=== PATIENT | female | born 1985 | race Two or more races ===

== ENCOUNTER → 2016-05-01 | Emergency (ER) | payer OTHER ==
[~2016-05-01] MED LIST: ONDANSETRON 4 MG/2 ML VIAL IVPUSH ONE; ONDANSETRON 4 MG/2 ML VIAL ONE; SODIUM CHLORIDE 1,000 ML IV STA; morphine CARPU-JECT 2 MG/1 ML DISP.SYRIN IVPUSH ONE; morphine CARPU-JECT 2 MG/1 ML DISP.SYRIN ONE
[2016-05-01 11:08] VITALS: PULSE 68; TEMP 97.3; BMI 21.4
[2016-05-01 12:12] LABS: BASOPHIL 0.3 % (0-2.0); MCHC 33.4 g/dl (32.0-36.0); MEAN CELL VOLUME 95.8 fl (80-96); MEAN PLT VOLUME 7.5 fl (7.5-11.1); NEUTROPHILS 92.1 % (42.8-82.8); PLATELET COUNT 329 K/MM3 (134-434); RDW 13.5 % (11.6-15.6); WHITE BLOOD COUNT 11.2 K/mm3 (4.0-10.0)
--- NOTE | 2016-05-01 12:22 | PDOC ---
History of Present Illness - General Chief Complaint: Pain, Acute Stated Complaint: ABD PAIN Time Seen by Provider: 05/01/16 11:21 History Source: Patient Exam Limitations: No Limitations - History of Present Illness Travel History: No Initial Comments: 05/01/16 11:27 31-year-old female presents the ED with worsening left suprapubic cramping which she states started yesterday evening thinking it was her menses since she is currently 3 weeks late but states the pain worsened through the night and this morning became to the point that she started to vomit and felt nauseous. Patient denies history of ectopic, irregular menses, or uterine fibroids. Patient does state history of ovarian cysts without surgical or medical intervention. Patient states vaginal bleeding started this morning which is a dark red and consistent with the beginning of her menstrual flow. Timing/Duration: reports: constant, getting worse Quality: reports: moderate, cramping Abdominal Pain Onset Location: reports: suprapubic (left) Pain Radiation: reports: no radiation Activities at Onset: reports: none Aggravating Factors: improves with: None Alleviating Factors: improves with: None Past History - Past Medical History Allergies/Adverse Reactions: Allergies Allergy/AdvReac Type Severity Reaction Status Date / Time No Known Allergies Allergy Verified 05/01/16 11:04 Home Medications: Ambulatory Orders NK [No Known Home Medication] 11/27/14 Other medical history: denies. - Reproductive History LMP Normal: No Is Patient Now?: No (#): 2 Para: 0 Therapeutic (s) & number: Yes Spontaneous : 1 - Psycho/Social/Smoking Cessation Hx Anxiety: No Suicidal Ideation: No Smoking History: Never smoked Hx Alcohol Use: Yes (OCCASIONALLY) Drug/Substance Use Hx: No Substance Use Type: Alcohol Patient Lives Alone: No Lives with/in: spouse/SO Review of Systems - Review of Systems Able to Perform ROS?: Yes Constitutional: No: Symptoms Reported HEENTM: No: Symptoms Reported Respiratory: No: Symptoms reported Cardiac (ROS): No: Symptoms Reported ABD/GI: Yes: Nausea, Vomiting, Abdominal cramping : Yes: Dysuria (vaginal bleeding since this am) Musculoskeletal: No: Symptoms Reported Integumentary: No: Symptoms Reported Neurological: No: Symptoms reported Endocrine: No: Symptoms Reported Hematologic/Lymphatic: No: Symptoms Reported *Physical Exam - Vital Signs Last Vital Signs Temp Pulse Resp BP Pulse Ox 97.3 F L 68 23 134/47 100 05/01/16 11:04 05/01/16 11:04 05/01/16 11:04 05/01/16 11:04 05/01/16 11:04 - Physical Exam General Appearance: Yes: Nourished, Appropriately Dressed, Mild Distress HEENT: negative: Pale Conjunctivae Neck: positive: Supple Respiratory/Chest: positive: Lungs Clear, Normal Breath Sounds. negative: Respiratory Distress, Accessory Muscle Use Cardiovascular: positive: Regular Rhythm, Regular Rate. negative: Murmur Female Pelvic Exam: positive: cervical os closed, adnexal tenderness (left), vaginal bleeding (dark red no clots). negative: CMT Gastrointestinal/Abdominal: positive: Soft, Guarding (mild), Rebound (left suprapubic), Tenderness (left suprapubic) Extremity: positive: Normal Capillary Refill Integumentary: positive: Normal Color, Warm, Moist Neurologic: positive: Motor Strength 5/5 (ambulatory) ED Treatment Course - LABORATORY CBC & Chemistry Diagram: 05/01/16 12:00 05/01/16 12:00 Medical Decision Making - Medical Decision Making 05/01/16 11:27 Patient worsening left suprapubic pain associated with vaginal bleeding. Patient is also 3 weeks late on her menses. Patient on exam had left adnexal tenderness with vaginal bleeding. Patient concerning for torsion versus ovarian cyst versus ectopic. Patient ordered for labs, antiemetics, and analgesics, IV fluids, and urine 05/01/16 12:46 Laboratory Tests 05/01/16 05/01/16 05/01/16 12:00 12:00 12:00 WBC 11.2 H D Hgb 13.4 Hct 40.2 Neutrophils % 92.1 H D Sodium 140 Potassium 3.7 Chloride 103 Carbon Dioxide 22 Anion Gap 15 BUN 6 L Creatinine 1.0 D Random Glucose 166 H D Calcium 9.5 Total Bilirubin 0.8 D AST 31 D ALT 29 Serum , Qual Negative Laboratory Tests 05/01/16 12:00 Urine Ketones 2+ H Ur Leukocyte Esterase Negative Urine RBC 11 Urine WBC <1 Ordered tv u/s. Pt states pain is minimal 04/18 presently 05/01/16 14:35 Ultrasound shows normal-appearing endometrium normal-appearing ovaries with normal arterial flow bilateral. There is no evidence of adnexal masses. Free fluid is then a fight within the cul-de-sac. Patient states feeling better and will discharge patient home at discomfort may be related to irregular/late menses. 05/01/16 14:37 *DC/Admit/Observation/Transfer Diagnosis at time of Disposition: Irregular menses - Discharge Dispostion Disposition: HOME Condition at time of disposition: Improved - Referrals Referrals: Heaven Fabian MD [Staff Physician] - - Patient Instructions Printed Discharge Instructions: DI for Dysmenorrhea Additional Instructions: May take Motrin or Tylenol for discomfort. Please use a heating pad to the affected area. Please follow-up with referred [facility]. Otherwise return to ED if symptoms worsen.
[2016-05-01 12:37] LABS: ALBUMIN 4.6 g/dl (3.4-5.0); ALK PHOS 70 U/L (45-117); ANION GAP 15 (8-16); BILIRUBIN,TOTAL 0.8 mg/dL (0.2-1.0); CALCIUM 9.5 mg/dL (8.5-10.1); CO2 22 mmol/L (21-32); GLUCOSE,RANDOM 166 mg/dL (74-106); SGOT/AST 31 U/L (15-37); SGPT/ALT 29 U/L (12-78); TOT PROT 8.1 g/dl (6.4-8.2)
[2016-05-01 13:06] LABS: URINE APPEARANCE CLEAR; URINE BILIRUBIN NEGATIVE (NEGATIVE); URINE BLOOD NEGATIVE (NEGATIVE); URINE COLOR YELLOW; URINE GLUCOSE (UA) 1+ (NEGATIVE); URINE KETONE 2+ (NEGATIVE); URINE LEUK ESTERASE NEGATIVE (NEGATIVE); URINE NITRITE NEGATIVE (NEGATIVE); URINE PROTEIN 2+ (NEGATIVE); URINE UROBILINOGEN NEGATIVE E.U./dl (0.2-1.0)
[2016-05-01 13:09] LABS: URINE MUCUS FEW; URINE RBC 11 /hpf (0-3); URINE WBC <1 /hpf (3-5)
[2016-05-01 15:11] VITALS: BP 121/69
== END | disposition home or self-care (01) ==
LOC: JER 11:00
PROC: 3E033NZ Introduction of Analgesics, Hypnotics, Sedatives into Peripheral Vein, Percutaneous Approach (ICD-10-PCS; principal; 2016-05-01)
PROC: 3E033GC Introduction of Other Therapeutic Substance into Peripheral Vein, Percutaneous Approach (ICD-10-PCS; 2016-05-01)
DX: N92.5 Other specified irregular menstruation (principal); N94.6 Dysmenorrhea, unspecified
CPT/HCPCS: 36415; 76830-TC; 80053; 81003; 81015; 84703; 85025; 99283-25

== ENCOUNTER 2016-07-24 04:19 | Emergency (ER) | payer OTHER ==
[2016-07-24 04:47] VITALS: TEMP 98.2; BMI 21.7
--- NOTE | 2016-07-24 04:57 | PDOC ---
History of Present Illness - General History Source: Patient Exam Limitations: No Limitations - History of Present Illness Initial Comments: 07/24/16 05:29 The patient is a 31 year old female with past medical history of ruptured ovarian cyst who presents to the ED for diffuse lower abdominal pain 2 hours ago. Patient describes her pain as sharp and dull, 10/10, and constant. Patient reports associated nausea and vomiting x3, but no vomiting. She endorses fever, chills, and dizziness. The patient denies diaphoresis, cough, SOB, chest pain, and palpitations. Allergies: NKDA Social History: No alcohol, tobacco, or drug use reported. Past Surgical History: Right knee ACL repair PCP: None reported <Jill Younger - Last Filed: 07/24/16 05:29> - General History Source: Patient <Shubham Mcqueen - Last Filed: 07/24/16 19:49> - General Chief Complaint: Pain, Acute Stated Complaint: BAD LOWER ABDOMINAL PAIN Time Seen by Provider: 07/24/16 04:47 Past History <Jill Younger - Last Filed: 07/24/16 05:29> - Reproductive History (#): 2 Para: 0 Therapeutic (s) & number: Yes Spontaneous : 1 - Psycho/Social/Smoking Cessation Hx Anxiety: No Suicidal Ideation: No Smoking History: Never smoked Have you smoked in the past 12 months: No Information on smoking cessation initiated: No Hx Alcohol Use: No Drug/Substance Use Hx: No Substance Use Type: Alcohol <Shubham Mcqueen - Last Filed: 07/24/16 19:49> - Past Medical History Allergies/Adverse Reactions: Allergies Allergy/AdvReac Type Severity Reaction Status Date / Time No Known Allergies Allergy Verified 07/24/16 04:44 Home Medications: Ambulatory Orders Naproxen [Naprosyn] 500 mg PO BID PRN #20 tablet 07/24/16 Review of Systems - Review of Systems Able to Perform ROS?: Yes Comments:: 07/24/16 05:30 CONSTITUTIONAL: +fever, chills Absent: no fatigue EYES: Absent: visual changes ENT: Absent: ear pain, no sore throat CARDIOVASCULAR: Absent: chest pain, no palpitations RESPIRATORY: Absent: cough, no SOB GI: +diffuse lower abdominal pain, nausea, vomiting Absent: no constipation, no diarrhea GENITOURINARY: Absent: dysuria, no frequency, no hematuria MUSCULOSKELETAL: Absent: back pain, no arthralgia, no myalgia SKIN: Absent: rash NEURO: +dizziness Absent: headache <Jill Younger - Last Filed: 07/24/16 05:29> *Physical Exam - Vital Signs Last Vital Signs Temp Pulse Resp BP Pulse Ox 98.2 F 121 H 14 127/104 100 07/24/16 04:44 07/24/16 04:44 07/24/16 04:44 07/24/16 04:44 07/24/16 04:44 - Physical Exam Comments: 07/24/16 05:30 GENERAL: Well-appearing, well-nourished. Moderate distress. HEENT: Normocephalic, atraumatic. PERRL, EOM intact. CARDIOVASCULAR: Tachycardia. Regular rhythm. Normal S1, S2. PULMONARY: Clear to auscultation bilaterally. ABDOMEN: Soft, non-distended, moderate tenderness in the low segments regions, both right and left quadrants, greater in the left. + guarding. No rebound. Decreased bowel sounds. EXTREMITIES: Normal ROM in all four extremities. No gross deformities. SKIN: Warm, dry. No rash NEUROLOGICAL: No focal neurological deficits. <Jill Younger - Last Filed: 07/24/16 05:29> - Vital Signs Last Vital Signs Temp Pulse Resp BP Pulse Ox 98.2 F 121 H 14 127/104 100 07/24/16 04:44 07/24/16 04:44 07/24/16 04:44 07/24/16 04:44 07/24/16 04:44 <Shubham Mcqueen - Last Filed: 07/24/16 19:49> ED Treatment Course - LABORATORY CBC & Chemistry Diagram: 07/24/16 05:15 07/24/16 05:15 <Jill Younger - Last Filed: 07/24/16 05:29> - LABORATORY CBC & Chemistry Diagram: 07/24/16 05:15 07/24/16 05:15 <Shubham Mcqueen - Last Filed: 07/24/16 19:49> Medical Decision Making - Medical Decision Making 07/24/16 06:32 Dr. Mcqueen: The scribe's documentation has been prepared under my direction and personally reviewed by me in its entirery. I confirm that the note above accurately reflects all work, treatment, procedures, and medical decision making performed by me. Pt feeling better, however still having pain. Pending US to evaluate the adnexa. Will sign out to morning physician. <Shubham Mcqueen - Last Filed: 07/24/16 19:49> *DC/Admit/Observation/Transfer - Attestations Scribe Attestion: 07/24/16 05:30 Documentation prepared by Jill Younger, acting as medical genetics director for Shubham Mcqueen MD/DO. <Jill Younger - Last Filed: 07/24/16 05:29> - Discharge Dispostion Admit: No <Shubham Mcqueen - Last Filed: 07/24/16 19:49> Diagnosis at time of Disposition: Abdominal pain, Dysmenorrhea - Discharge Dispostion Disposition: HOME Condition at time of disposition: Improved - Prescriptions Prescriptions: Naproxen [Naprosyn] 500 mg PO BID PRN #20 tablet PRN Reason: Pain - Referrals Referrals: Ramone Castellon MD [Primary Care Provider] - - Patient Instructions Printed Discharge Instructions: DI for Dysmenorrhea, DI for Abdominal Pain- Adult Additional Instructions: Return to the emergency department immediately with ANY new, persistent or worsening symptoms. You MUST call and follow up with your doctor tomorrow. Please make sure your doctor reviews the results of your emergency department evaluation. - Post Discharge Activity Work/School Note: Back to Work
[2016-07-24] MEDS ORDERED: morphine CARPU-JECT 2 MG/1 ML DISP.SYRIN IVPUSH ONE (04:58)
[2016-07-24] MEDS ORDERED: ONDANSETRON 4 MG/2 ML VIAL IVPUSH STA (04:58)
[2016-07-24] MEDS ORDERED: SODIUM CHLORIDE 1,000 ML IV SCH (05:00)
[2016-07-24] MEDS ORDERED: morphine CARPU-JECT 2 MG/1 ML DISP.SYRIN ONE (05:10)
[2016-07-24] MEDS ORDERED: ONDANSETRON 4 MG/2 ML VIAL ONE (05:11)
[2016-07-24] MEDS ORDERED: morphine CARPU-JECT 4 MG/1 ML DISP.SYRIN ONE ×2 (05:11→07:41)
[2016-07-24 05:34] LABS: BASOPHIL 0.2 % (0-2.0); MCH 31.9 pg (25.7-33.7); MCHC 33.4 g/dl (32.0-36.0); MEAN CELL VOLUME 95.3 fl (80-96); MEAN PLT VOLUME 7.6 fl (7.5-11.1); NEUTROPHILS 86.4 % (42.8-82.8); PLATELET COUNT 320 K/MM3 (134-434); WHITE BLOOD COUNT 10.8 K/mm3 (4.0-10.0)
[2016-07-24 05:45] LABS: INR 1.02 (0.82-1.09); PROTHROMBIN TIME (PATIENT) 11.2 SEC (9.98-11.88)
[2016-07-24 06:05] LABS: ALBUMIN 4.2 g/dl (3.4-5.0); ALK PHOS 48 U/L (45-117); ANION GAP 13 (8-16); BILIRUBIN,TOTAL 0.6 mg/dL (0.2-1.0); CALCIUM 9.3 mg/dL (8.5-10.1); CO2 23 mmol/L (21-32); GLUCOSE,RANDOM 194 mg/dL (74-106); SGOT/AST 34 U/L (15-37); SGPT/ALT 32 U/L (12-78); TOT PROT 7.7 g/dl (6.4-8.2)
--- NOTE | 2016-07-24 06:43 | PDOC ---
*Physical Exam - Vital Signs Last Vital Signs Temp Pulse Resp BP Pulse Ox 98.2 F 121 H 14 127/104 100 07/24/16 04:44 07/24/16 04:44 07/24/16 04:44 07/24/16 04:44 07/24/16 04:44 - Physical Exam Comments: 07/24/16 06:43 Sign-out received from outgoing Emergency Physician Pt interviewed and examined Her pain has completely resolved She has a history of dysmenorrhea, and states that this pain is similar Ancillary studies reviewed US pending 07/24/16 07:40 The patient's pain has reoccurred I have requested that the ultrasound be performed stat to rule out torsion Will administer additional opiate analgesia 07/24/16 09:29 Ultrasound noted, without any ovarian abnormalities Given the hematuria, ureterolithiasis is a possibility Will obtain CT 07/24/16 10:29 CT noted The patient's symptoms have completely resolved Abdomen is soft and nontender I discussed the possibility of intermittent torsion with her She adamantly refuses hospital admission and would like to go home She understands the possibility of intermittent torsion and the importance of returning Of note, given the fact that her ovaries are of normal size, and that this pain closely resembles her dysmenorrhea, I feel that torsion is very unlikely Clinical impression: Abdominal pain; resolved Dysmenorrhea I discussed the physical exam findings, ancillary test results and final diagnoses with the patient. I answered all of the patient's questions. The patient was satisfied with the care received and felt comfortable with the discharge plan and treatment plan. The patient will call their primary care physician within 24 hours to arrange follow-up and will return to the Emergency Department with any new, persistent or worsening symptoms. 07/24/16 10:36 ED Treatment Course - LABORATORY CBC & Chemistry Diagram: 07/24/16 05:15 07/24/16 05:15 - ADDITIONAL ORDERS Additional order review: Laboratory Results 07/24/16 07/24/16 05:15 05:15 Sodium 141 Potassium 3.7 Chloride 105 Carbon Dioxide 23 Anion Gap 13 BUN 9 D Creatinine 1.0 Creat Clearance w eGFR > 60 Random Glucose 194 H Calcium 9.3 Total Bilirubin 0.6 D AST 34 ALT 32 Alkaline Phosphatase 48 D Total Protein 7.7 Albumin 4.2 Lipase 125 Serum , Qual Negative 07/24/16 05:15 RBC 4.08 MCV 95.3 MCHC 33.4 RDW 13.0 MPV 7.6 Neutrophils % 86.4 H Lymphocytes % 8.1 D Monocytes % 5.3 Eosinophils % 0.0 Basophils % 0.2 - Medications Given in the ED: ED Medications Discontinued Medications Generic Name Dose Route Start Last Admin Trade Name Delmy PRN Reason Stop Dose Admin Morphine Sulfate 6 mg 07/24/16 04:58 07/24/16 05:29 Morphine Injection - IVPUSH 07/24/16 04:59 6 mg ONCE ONE Administration Ondansetron HCl 4 mg 07/24/16 04:58 07/24/16 05:31 Zofran Injection IVPUSH 07/24/16 04:59 4 mg ONCE STA Administration *DC/Admit/Observation/Transfer Diagnosis at time of Disposition: Abdominal pain, Dysmenorrhea - Discharge Dispostion Disposition: HOME Condition at time of disposition: Improved - Referrals Referrals: Ramone Castellon MD [Primary Care Provider] - - Patient Instructions Printed Discharge Instructions: DI for Abdominal Pain-Adult, DI for Dysmenorrhea Additional Instructions: Return to the emergency department immediately with ANY new, persistent or worsening symptoms. You MUST call and follow up with your doctor tomorrow. Please make sure your doctor reviews the results of your emergency department evaluation. - Post Discharge Activity Work/School Note: Back to Work
[2016-07-24 06:55] LABS: URINE APPEARANCE CLOUDY; URINE BILIRUBIN NEGATIVE (NEGATIVE); URINE COLOR YELLOW; URINE GLUCOSE (UA) 2+ (NEGATIVE); URINE KETONE 2+ (NEGATIVE); URINE LEUK ESTERASE NEGATIVE (NEGATIVE); URINE NITRITE NEGATIVE (NEGATIVE); URINE UROBILINOGEN NEGATIVE E.U./dl (0.2-1.0)
[2016-07-24] MEDS ORDERED: morphine CARPU-JECT 4 MG/1 ML DISP.SYRIN IVPUSH ONE (07:40)
[2016-07-24 08:17] LABS: URINE BLOOD 3+ (NEGATIVE); URINE PROTEIN 1+ (NEGATIVE)
[2016-07-24 08:51] LABS: URINE MUCUS MODERATE; URINE RBC 14 /hpf (0-3); URINE WBC 5 /hpf (3-5); YEAST RARE
[2016-07-24] MEDS ORDERED: NAPROXEN 500 MG TABLET (FP) PO ONE (10:46)
[2016-07-24] MEDS ORDERED: NAPROXEN 500 MG TABLET (FP) ONE (10:47)
[2016-07-24 11:05] VITALS: BP 124/70; PULSE 60
== END 2016-07-24 11:06 | disposition home or self-care (01) ==
LOC: JER 04:19
PROC: 3E0337Z Introduction of Electrolytic and Water Balance Substance into Peripheral Vein, Percutaneous Approach (ICD-10-PCS; principal; 2016-07-24)
PROC: 3E033NZ Introduction of Analgesics, Hypnotics, Sedatives into Peripheral Vein, Percutaneous Approach (ICD-10-PCS; 2016-07-24)
PROC: 3E033GC Introduction of Other Therapeutic Substance into Peripheral Vein, Percutaneous Approach (ICD-10-PCS; 2016-07-24)
PROC: 3E0333Z Introduction of Anti-inflammatory into Peripheral Vein, Percutaneous Approach (ICD-10-PCS; 2016-07-24)
DX: N94.6 Dysmenorrhea, unspecified (principal)
CPT/HCPCS: 36415; 74176-TC; 76830-TC; 80053; 81003; 81015; 83690; 84703; 85025; 85610; 86850; 86900; 86901; 87086; 99283-25

== ENCOUNTER 2016-08-05 09:58 | Emergency (ER) | payer OTHER ==
[2016-08-05 10:03] VITALS: BMI 21.4
[2016-08-05] MEDS ORDERED: morphine CARPU-JECT 2 MG/1 ML DISP.SYRIN IVPUSH ONE (10:34)
[2016-08-05] MEDS ORDERED: ONDANSETRON 4 MG/2 ML VIAL IVPUSH ONE (10:34)
[2016-08-05] MEDS ORDERED: SODIUM CHLORIDE 1,000 ML IV STA ×2 (10:34→11:33)
--- NOTE | 2016-08-05 10:42 | PDOC ---
History of Present Illness - General Chief Complaint: Vaginal Bleeding Stated Complaint: ABD CRAMPS, NAUSEA, WEAKNESS Time Seen by Provider: 08/05/16 10:25 History Source: Patient Exam Limitations: No Limitations - History of Present Illness Initial Comments: 08/05/16 11:00 31-year-old female presents the ED with complaints of suprapubic pain for the past few days worsening this morning causing her nausea. Patient also states has noted some vaginal bleeding which she states is light brown but just had her cycle 2 weeks ago. Patient states was seen here 2 weeks ago and had a negative workup and was told to follow-up with her [facility] Dr. Peraza but states did not and decided come to the ER. Patient denies fever, chills, radiation of pain , dysuria, diarrhea, abdominal distention, or vaginal discharge. Timing/Duration: reports: constant Quality: reports: moderate, cramping Abdominal Pain Onset Location: reports: suprapubic (generalized) Pain Radiation: reports: no radiation Activities at Onset: reports: none Aggravating Factors: improves with: None Alleviating Factors: improves with: None Past History - Past Medical History Allergies/Adverse Reactions: Allergies Allergy/AdvReac Type Severity Reaction Status Date / Time No Known Allergies Allergy Verified 08/05/16 10:03 Home Medications: Ambulatory Orders Naproxen [Naprosyn] 500 mg PO BID PRN #20 tablet 07/24/16 Norethindrone-E.estradiol-Iron [Junel Fe 1 mg-20 Mcg Tablet] 1 each PO DAILY Other medical history: ruptured cysts - Reproductive History LMP Normal: No Is Patient Now?: No (#): 2 Para: 0 Therapeutic (s) & number: Yes Spontaneous : 1 - Psycho/Social/Smoking Cessation Hx Anxiety: No Suicidal Ideation: No Smoking History: Never smoked Have you smoked in the past 12 months: No Information on smoking cessation initiated: No Hx Alcohol Use: No Drug/Substance Use Hx: No Substance Use Type: None Patient Lives Alone: No Review of Systems - Review of Systems Able to Perform ROS?: Yes Constitutional: No: Symptoms Reported HEENTM: No: Symptoms Reported Respiratory: No: Symptoms reported Cardiac (ROS): No: Symptoms Reported ABD/GI: Yes: Nausea, Abdominal cramping. No: Vomiting : Yes: Other (spotting) Musculoskeletal: No: Symptoms Reported Integumentary: No: Symptoms Reported Neurological: No: Symptoms reported *Physical Exam - Vital Signs Last Vital Signs Temp Pulse Resp BP Pulse Ox 98.3 F 85 18 139/88 98 08/05/16 10:02 08/05/16 10:02 08/05/16 10:02 08/05/16 10:02 08/05/16 10:02 - Physical Exam General Appearance: Yes: Nourished, Appropriately Dressed. No: Apparent Distress HEENT: positive: EOMI, ERWIN. negative: Pale Conjunctivae Neck: positive: Supple Respiratory/Chest: positive: Lungs Clear, Normal Breath Sounds. negative: Respiratory Distress, Accessory Muscle Use Cardiovascular: positive: Regular Rhythm, Regular Rate. negative: Murmur Female Pelvic Exam: positive: normal external exam, cervical os closed, vaginal bleeding (light brown/pink). negative: CMT, adnexal tenderness Gastrointestinal/Abdominal: positive: Normal Bowel Sounds, Soft, Guarding, Tenderness (midsuprapubic). negative: Distended Musculoskeletal: negative: CVA Tenderness Integumentary: positive: Normal Color, Warm, Moist Neurologic: positive: Motor Strength 5/5 (ambulatory) ED Treatment Course - LABORATORY CBC & Chemistry Diagram: 08/05/16 10:30 08/05/16 10:30 Medical Decision Making - Medical Decision Making 08/05/16 11:00 Patient here with recurrent suprapubic pain stating this episode began approximately 2-3 days ago after having sexual intercourse. patient also states has been spotting since this morning and pain has increased. Patient had ultrasound along with CT done on 07/24 with no acute findings. Patient on exam did have mid suprapubic tenderness. Patient ordered for labs, analgesics, antiemetics medication and will consider imaging once labs are resulted along with urine. 08/05/16 13:11 Patient states feeling much better. Patient wants to eat. Patient currently receiving second bag of IV fluid secondary ketones in the urine. Ultrasound shows a slightly prominent uterus without evidence of discrete mass lesion. Bilateral ovaries otherwise intact. Patient be discharged home with Zofran and told to follow-up with Dr. Peraza her [facility] *DC/Admit/Observation/Transfer Diagnosis at time of Disposition: Suprapubic pain - Discharge Dispostion Disposition: HOME Condition at time of disposition: Improved - Referrals Referrals: Ramone Castellon MD [Primary Care Provider] - - Patient Instructions Printed Discharge Instructions: DI for Abdominal Pain-Adult Additional Instructions: May take Zofran for nausea and please follow-up with your [facility]. May take Motrin or Tylenol for discomfort
[2016-08-05 10:57] LABS: BASOPHIL 0.3 % (0-2.0); EOSINOPHIL 0.2 % (0-4.5); MCH 32.3 pg (25.7-33.7); MCHC 33.5 g/dl (32.0-36.0); MEAN CELL VOLUME 96.3 fl (80-96); MEAN PLT VOLUME 7.2 fl (7.5-11.1); NEUTROPHILS 85.8 % (42.8-82.8); PLATELET COUNT 317 K/MM3 (134-434); RDW 13.1 % (11.6-15.6)
[2016-08-05 10:59] LABS: URINE APPEARANCE SLCLOUDY; URINE BILIRUBIN NEGATIVE (NEGATIVE); URINE COLOR DKYELLOW; URINE GLUCOSE (UA) NEGATIVE (NEGATIVE); URINE KETONE 2+ (NEGATIVE); URINE LEUK ESTERASE NEGATIVE (NEGATIVE); URINE NITRITE NEGATIVE (NEGATIVE); URINE UROBILINOGEN NEGATIVE E.U./dl (0.2-1.0)
[2016-08-05] MEDS ORDERED: ONDANSETRON 4 MG/2 ML VIAL ONE (11:00)
[2016-08-05] MEDS ORDERED: morphine CARPU-JECT 4 MG/1 ML DISP.SYRIN ONE (11:00)
[2016-08-05 11:11] LABS: URINE BLOOD 3+ (NEGATIVE); URINE PROTEIN 2+ (NEGATIVE)
[2016-08-05 11:14] LABS: GRANULAR CASTS 11 /lpf; URINE MUCUS MANY; URINE RBC 4 /hpf (0-3); URINE WBC 16 /hpf (3-5)
[2016-08-05 11:24] LABS: ANION GAP 14 (8-16); CALCIUM 9.7 mg/dL (8.5-10.1); CO2 22 mmol/L (21-32); COCKROFT - GAULT 81.7275; CREATININE 0.8 mg/dL (0.55-1.02); GLUCOSE,RANDOM 79 mg/dL (74-106)
[2016-08-05 13:46] VITALS: BP 111/54; PULSE 62; TEMP 97.8
== END 2016-08-05 13:47 | disposition home or self-care (01) ==
LOC: JER 09:58
PROC: 3E0337Z Introduction of Electrolytic and Water Balance Substance into Peripheral Vein, Percutaneous Approach (ICD-10-PCS; principal; 2016-08-05)
PROC: 3E033NZ Introduction of Analgesics, Hypnotics, Sedatives into Peripheral Vein, Percutaneous Approach (ICD-10-PCS; 2016-08-05)
PROC: 3E033GC Introduction of Other Therapeutic Substance into Peripheral Vein, Percutaneous Approach (ICD-10-PCS; 2016-08-05)
DX: R10.30 Lower abdominal pain, unspecified (principal)
CPT/HCPCS: 36415; 76830-TC; 80048; 81003; 81015; 84702; 85025; 86850; 86900; 86901; 87086; 96361; 96374; 96375; 99284-25

== ENCOUNTER 2016-08-07 14:48 | Emergency (ER) | payer OTHER ==
[2016-08-07 14:53] VITALS: BP 132/71; PULSE 75; TEMP 98.5; BMI 21.4
--- NOTE | 2016-08-07 15:19 | PDOC ---
History of Present Illness - General Chief Complaint: Laceration Stated Complaint: LEFT HAND INJURY Time Seen by Provider: 08/07/16 15:18 History Source: Patient Exam Limitations: No Limitations - History of Present Illness Initial Comments: 08/07/16 15:32 Pt. is a 31 y/o female with no PMH who presents to the ED with a laceration to her L 4th finger. Pt. states she was cutting an [place] when the knife slipped and she cut her finger. Pt. cleaned the finger and controlled the bleeding. Denies numbness or tingling and states she is able to move her finger with pain. Pt. removed her wedding ring prior to ED arrival. Tetanus is UTD. Past History - Travel Traveled outside of the country in the last 30 days: No Close contact w/someone who was outside of country & ill: No - Past Medical History Allergies/Adverse Reactions: Allergies Allergy/AdvReac Type Severity Reaction Status Date / Time No Known Allergies Allergy Verified 08/05/16 10:03 Home Medications: Ambulatory Orders NK [No Known Home Medication] 08/07/16 Other medical history: denies - Reproductive History (#): 2 Para: 0 Therapeutic (s) & number: Yes Spontaneous : 1 - Psycho/Social/Smoking Cessation Hx Anxiety: No Suicidal Ideation: No Smoking History: Current some day smoker Have you smoked in the past 12 months: Yes Number of Cigarettes Smoked Daily: 1 Information on smoking cessation initiated: No Hx Alcohol Use: No Drug/Substance Use Hx: No Substance Use Type: None Review of Systems - Review of Systems Able to Perform ROS?: Yes Is the patient limited Estonian proficient: No Constitutional: No: Chills, Fever, Malaise Integumentary: Yes: Other (laceration to the L ring finger) *Physical Exam - Vital Signs Last Vital Signs Temp Pulse Resp BP Pulse Ox 98.5 F 75 18 132/71 96 08/07/16 14:49 08/07/16 14:49 08/07/16 14:49 08/07/16 14:49 08/07/16 14:49 - Physical Exam General Appearance: Yes: Nourished, Appropriately Dressed, Other (Pt. sitting on exam bed holding L ring finger.). No: Apparent Distress Extremity: positive: Normal Capillary Refill, Normal Range of Motion (Able to fully flex and extend 4th finger with some pain), Tender (TTP over laceration. Small hematoma.), Other (Radial pulses 2+ b/l) Integumentary: positive: Normal Color, Dry, Warm, Other (1cm superficial laceration on the lateral L 4th finger. Bleeding is controlled. 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 is a 31 y/o female with no PMH who presents with a superficial 1cm lac to the L 4th finger. Wound is very superficial and is not over a flexor joint. Will close with dermabond. Pt. is neurovascularly intact. VVS. Pt. tetanus is UTD. Will discharge home at this time with wound care instructions. Pt. understands all discharge instructions and all questions were answered at this time. *DC/Admit/Observation/Transfer Diagnosis at time of Disposition: Laceration of finger of left hand Qualifiers: Encounter type: initial encounter Qualified Code(s): S61.219A - Laceration without foreign body of unspecified finger without damage to nail, initial encounter - Discharge Dispostion Disposition: HOME Condition at time of disposition: Stable Admit: No - Referrals Referrals: Ramone Castellon MD [Primary Care Provider] - - Patient Instructions Printed Discharge Instructions: DI for Laceration Repair Additional Instructions: Your laceration was repaired with Dermabond (glue). This glue acts like stitches. The glue will come off on its own in approximately 7-10 days. Keep the area clean and dry. Wear a glove while showering or while washing dishes. Do not soak the hand for 2 weeks (no swimming). You may cover the area with a Band-Aid while out. You may take Tylenol as needed for pain. Once the swelling decreases (3-5 days) you may wear your ring again. Return to the ED if you develop any signs of infection such as, fevers, chills, nausea, vomiting, inflammation of the area, or if you have any changes in your symptoms.
[2016-08-07] MEDS ORDERED: ACETAMINOPHEN 325 MG TABLET (FP) PO ONE (15:36)
[2016-08-07] MEDS ORDERED: ACETAMINOPHEN 325 MG TABLET (FP) ONE (15:38)
== END 2016-08-07 15:42 | disposition home or self-care (01) ==
LOC: JERFT 14:48
PROC: 0HQGXZZ Repair Left Hand Skin, External Approach (ICD-10-PCS; principal; 2016-08-07)
DX: S61.215A Laceration without foreign body of left ring finger without damage to nail, initial encounter (principal); W26.0XXA Contact with knife, initial encounter; Y93.G1 Activity, food preparation and clean up; Y92.030 Kitchen in apartment as the place of occurrence of the external cause; Y99.8 Other external cause status
CPT/HCPCS: 12001-25; 99281-25

== ENCOUNTER 2016-08-09 10:19 | Emergency (ER) | payer OTHER ==
[2016-08-09 10:31] VITALS: BP 120/86; PULSE 109; TEMP 98.2; BMI 21.4
[2016-08-09] MEDS ORDERED: BACITRACIN 30 GM TUBE TOPICAL OINTMENT TP ONE (11:16)
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
[2016-08-09] MEDS ORDERED: BACITRACIN 30 GM TUBE TOPICAL OINTMENT ONE (11:22)
== END 2016-08-09 11:39 | disposition home or self-care (01) ==
LOC: JER 10:19 → JERFT 10:19
DX: T81.33XA Disruption of traumatic injury wound repair, initial encounter (principal)
CPT/HCPCS: 99281-25

== ENCOUNTER 2017-12-02 10:45 | Emergency (ER) | payer OTHER ==
[2017-12-02 11:32] VITALS: TEMP 98.8; BMI 22.4
[2017-12-02] MEDS ORDERED: KETOROLAC TROMETHAMINE 30 MG/1 ML VIAL IVPUSH ONE (11:51)
[2017-12-02] MEDS ORDERED: SODIUM CHLORIDE 1,000 ML IV STA (11:51)
[2017-12-02] MEDS ORDERED: METOCLOPRAMIDE HCL INJECTION 10 MG/2 ML VIAL IVPB ONE (11:51)
--- NOTE | 2017-12-02 11:56 | PDOC ---
History of Present Illness - General Chief Complaint: Nausea/Vomiting Stated Complaint: WEAKNESS, VOMITING Time Seen by Provider: 12/02/17 11:46 History Source: Patient Exam Limitations: No Limitations - History of Present Illness Travel History: No Initial Comments: 12/02/17 11:53 32 yr female with history of painful menses, ovarian cysts presents with lower abd pain vomiting since last night. no fever no chills, pt states LMP started last night . Pt denies , no urinary complaints. 12/02/17 11:54 Past History - Past Medical History Allergies/Adverse Reactions: Allergies Allergy/AdvReac Type Severity Reaction Status Date / Time No Known Allergies Allergy Verified 12/02/17 11:30 Home Medications: Ambulatory Orders Naproxen [Naprosyn -] 500 mg PO BID #28 tablet 12/02/17 COPD: No - Reproductive History (#): 2 Para: 0 Therapeutic (s) & number: Yes Spontaneous : 1 - Suicide/Smoking/Psychosocial Hx Smoking History: Never smoked Have you smoked in the past 12 months: Yes Number of Cigarettes Smoked Daily: 1 Hx Alcohol Use: No Drug/Substance Use Hx: No Substance Use Type: None Abd/GI Specific PMHX - Complaint Specific PMHX Colitis: No Diverticulitis: No Gall Bladder Disease: No GERD: No Hepatitis: No Irritable Bowel Synd (IBS): No Pancreatitis: No GI Ulcer Disease: No Other History: ruptured ovarian cysts Review of Systems - Review of Systems Able to Perform ROS?: Yes Is the patient limited Russian proficient: No Constitutional: No: Symptoms Reported HEENTM: No: Symptoms Reported Respiratory: No: Symptoms reported Cardiac (ROS): No: Symptoms Reported ABD/GI: Yes: Symptoms Reported *Physical Exam - Vital Signs Last Vital Signs Temp Pulse Resp BP Pulse Ox 98.8 F 115 H 20 109/72 99 12/02/17 11:30 12/02/17 11:30 12/02/17 11:30 12/02/17 11:30 12/02/17 11:30 - Physical Exam General Appearance: Yes: Nourished, Appropriately Dressed, Mild Distress HEENT: positive: EOMI, ERWIN, TMs Normal, Pharynx Normal Neck: positive: Supple. negative: Tender Respiratory/Chest: positive: Lungs Clear, Normal Breath Sounds Cardiovascular: positive: Regular Rhythm, Regular Rate Gastrointestinal/Abdominal: positive: Normal Bowel Sounds, Tender (LLQ) Musculoskeletal: positive: Normal Inspection Extremity: positive: Normal Capillary Refill, Normal Inspection, Normal Range of Motion. negative: Tender Integumentary: positive: Dry, Warm, Pale Neurologic: positive: dobie worker II-XII NML intact, Fully Oriented, Alert, Normal Mood/ Affect, Normal Response, Motor Strength 07/11 ED Treatment Course - LABORATORY CBC & Chemistry Diagram: 12/02/17 11:55 12/02/17 11:55 Medical Decision Making - Medical Decision Making 12/02/17 11:55 cc: lower abd pain with nv since 9pm last night neg fever or chills. 12/02/17 13:41 pt improved after meds feels much better will give 500ml bolus and then dc home pt agrees with the plan of care all dc inst discussed with patient *DC/Admit/Observation/Transfer Diagnosis at time of Disposition: Dysmenorrhea - Discharge Dispostion Disposition: HOME Condition at time of disposition: Improved - Prescriptions Prescriptions: Naproxen [Naprosyn -] 500 mg PO BID #28 tablet - Referrals - Patient Instructions Printed Discharge Instructions: DI for Dysmenorrhea, Dysmenorrhea (Alternative Therapy) Additional Instructions: apply a hot water bottle or a heating pad to your lower abdomen when you have menstrual cramps take the Naprosyn as directed for pain bland diet to help with nausea and vomiting please follow with your pharmacy clinical specialist for options to control your painful menses Return if any worsening symptoms - Post Discharge Activity
[2017-12-02] MEDS ORDERED: KETOROLAC TROMETHAMINE 30 MG/1 ML VIAL ONE (12:02)
[2017-12-02] MEDS ORDERED: METOCLOPRAMIDE HCL INJECTION 10 MG/2 ML VIAL ONE (12:02)
[2017-12-02 12:08] LABS: EOS % 0.1 % (0-4.5); HEMATOCRIT 40.4 % (32.4-45.2); HEMOGLOBIN 13.3 GM/dL (10.7-15.3); LYMPH % 4.6 % (8-40); MCH 30.9 pg (25.7-33.7); MEAN CELL VOLUME 93.7 fl (80-96); MEAN PLT VOLUME 7.4 fl (7.5-11.1); MONO % 2.4 % (3.8-10.2); NEUT % 92.9 % (42.8-82.8); PLATELET COUNT 299 K/MM3 (134-434); RBC 4.31 M/mm3 (3.60-5.2); RDW 14.7 % (11.6-15.6); WHITE BLOOD COUNT 8.5 K/mm3 (4.0-10.0)
[2017-12-02 12:24] LABS: URINE APPEARANCE CLEAR; URINE BILIRUBIN NEGATIVE (<2.0 mg/dL); URINE COLOR YELLOW; URINE GLUCOSE (UA) 1+ (NEGATIVE); URINE KETONE 1+ (NEGATIVE); URINE LEUK ESTERASE NEGATIVE (NEGATIVE); URINE NITRITE NEGATIVE (NEGATIVE); URINE UROBILINOGEN NEGATIVE mg/dL (0.2-1.0)
[2017-12-02 12:30] LABS: ALBUMIN 4.2 g/dl (3.4-5.0); ALK PHOS 60 U/L (45-117); ANION GAP 7 MMOL/L (8-16); BILIRUBIN,TOTAL 0.6 mg/dL (0.2-1); BLOOD UREA NITROGEN 5 mg/dL (7-18); CALCIUM 9.2 mg/dL (8.5-10.1); CHLORIDE 108 mmol/L (98-107); CO2 24 mmol/L (21-32); CREATININE 0.6 mg/dL (0.55-1.3); GLUCOSE,RANDOM 114 mg/dL (74-106); LIPASE 133 U/L (73-393); POTASSIUM 4.3 mmol/L (3.5-5.1); SGOT/AST 25 U/L (15-37); SGPT/ALT 23 U/L (13-61); SODIUM 139 mmol/L (136-145); TOT PROT 7.8 g/dl (6.4-8.2)
[2017-12-02 12:38] LABS: URINE PROTEIN 1+ (NEGATIVE)
[2017-12-02 12:40] LABS: EPI CELLS RARE /HPF (FEW); URINE MUCUS MODERATE
[2017-12-02] MEDS ORDERED: SODIUM CHLORIDE 500 ML IV STA (13:41)
--- NOTE | 2017-12-02 14:01 | PDOC ---
*Physical Exam - Vital Signs Last Vital Signs Temp Pulse Resp BP Pulse Ox 98.8 F 115 H 20 109/72 99 12/02/17 11:30 12/02/17 11:30 12/02/17 11:30 12/02/17 11:30 12/02/17 11:30 ED Treatment Course - LABORATORY CBC & Chemistry Diagram: 12/02/17 11:55 12/02/17 11:55 - ADDITIONAL ORDERS Additional order review: Laboratory Results 12/02/17 12/02/17 12/02/17 12:17 12:13 11:55 Sodium 139 Potassium 4.3 Chloride 108 H Carbon Dioxide 24 Anion Gap 7 L BUN 5 L Creatinine 0.6 Creat Clearance w eGFR > 60 Random Glucose 114 H Calcium 9.2 Total Bilirubin 0.6 AST 25 ALT 23 Alkaline Phosphatase 60 Total Protein 7.8 Albumin 4.2 Lipase 133 Urine Color Yellow Urine Appearance Clear Urine pH 7.0 D Ur Specific [place] 1.027 Urine Protein 1+ H Urine Glucose (UA) 1+ H Urine Ketones 1+ H Urine Blood Negative Urine Nitrite Negative Urine Bilirubin Negative Urine Urobilinogen Negative Ur Leukocyte Esterase Negative Urine WBC (Auto) 1 Urine RBC (Auto) 2 Ur Epithelial Cells Rare Urine Mucus Moderate Urine HCG, Qual Negative 12/02/17 11:55 RBC 4.31 MCV 93.7 MCHC 33.0 RDW 14.7 D MPV 7.4 L Neutrophils % 92.9 H Lymphocytes % 4.6 L D Monocytes % 2.4 L Eosinophils % 0.1 Basophils % 0.0 - Medications Given in the ED: ED Medications Discontinued Medications Generic Name Dose Route Start Last Admin Trade Name Delmy PRN Reason Stop Dose Admin Diphenhydramine HCl 12.5 mg 12/02/17 11:51 12/02/17 12:00 Benadryl Injection - IVPUSH 12/02/17 11:52 12.5 mg ONCE ONE Administration Sodium Chloride 1,000 mls @ 1,000 mls/hr 12/02/17 11:51 12/02/17 12:00 Normal Saline - IV 12/02/17 12:50 1,000 mls/hr ASDIR STA Administration Ketorolac Tromethamine 30 mg 12/02/17 11:51 12/02/17 12:00 Toradol Injection - IVPUSH 12/02/17 11:52 30 mg ONCE ONE Administration Metoclopramide HCl 10 mg 12/02/17 11:51 12/02/17 12:00 Reglan Injection - IVPB 12/02/17 11:52 10 mg ONCE ONE Administration Medical Decision Making - Medical Decision Making 12/02/17 14:00 32 yo F h/o Dysmenorrhea presenting with abdominal pain and vomiting Pt seen by Midlevel Provider under my direct supervision Ancillary studies reviewed I agree with plan as outlined by Midlevel Provider *DC/Admit/Observation/Transfer Diagnosis at time of Disposition: Dysmenorrhea - Discharge Dispostion Disposition: HOME Condition at time of disposition: Improved - Prescriptions Prescriptions: Naproxen [Naprosyn -] 500 mg PO BID #28 tablet - Referrals - Patient Instructions Printed Discharge Instructions: Dysmenorrhea (Alternative Therapy), DI for Dysmenorrhea Additional Instructions: apply a hot water bottle or a heating pad to your lower abdomen when you have menstrual cramps take the Naprosyn as directed for pain bland diet to help with nausea and vomiting please follow with your maintenance mechanic elevators for options to control your painful menses Return if any worsening symptoms - Post Discharge Activity
[2017-12-02 14:17] VITALS: BP 104/75; PULSE 78
[2017-12-02 15:11] LABS: ANISOCYTOSIS 1+; MACROCYTOSIS 1+; PLATELET ESTIMATE NORMAL
== END 2017-12-02 14:17 | disposition home or self-care (01) ==
LOC: JER 10:45
PROC: 3E033GC Introduction of Other Therapeutic Substance into Peripheral Vein, Percutaneous Approach (ICD-10-PCS; principal; 2017-12-02)
PROC: 3E0333Z Introduction of Anti-inflammatory into Peripheral Vein, Percutaneous Approach (ICD-10-PCS; 2017-12-02)
PROC: 3E0337Z Introduction of Electrolytic and Water Balance Substance into Peripheral Vein, Percutaneous Approach (ICD-10-PCS; 2017-12-02)
DX: N94.6 Dysmenorrhea, unspecified (principal)
CPT/HCPCS: 36415; 80053; 81003; 81015; 83690; 84702; 84703; 85025; 99282-25; J7030

== ENCOUNTER 2018-02-19 05:24 | Day surgery (SDC) | payer OTHER ==
[2018-02-16 10:19] VITALS: BMI 22.4
[2018-02-19] MEDS ORDERED: MIDAZOLAM HCL 2 MG/2 ML SINGLE DOSE VIAL ONE ×2 (12:45)
[2018-02-19] MEDS ORDERED: ceFAZolin SODIUM 1 GM VIAL IVPB ONE (12:54)
--- NOTE | 2018-02-19 13:45 | OP ---
Operative Note - Note: Operative Date: 02/19/18 Pre-Operative Diagnosis: Menometrorrhagia, endometrial polyps, adenomyosis Operation: Hysteroscopy, D&C, Polypectomy Findings: Enlarged endometrial cavity, sounded to 8cm. Two endometrial polyps and polypoid endometrium Post-Operative Diagnosis: Same as Pre-op Surgeon: Derek Jones Anesthesiologist/HOURLY SHIFT MANAGER: Demetrice Sparks MD Anesthesia: General Specimens Removed: Endometrial polyps, endometrial curettings Estimated Blood Loss (mls): 10 Blood Volume Replaced (mls): 0 Fluid Volume Replaced (mls): 0 Operative Report Dictated: Yes
[2018-02-19] MEDS ORDERED: oxyCODONE HCL 5 MG TABLET PO PRN (13:49)
[2018-02-19] MEDS ORDERED: ONDANSETRON 4 MG/2 ML VIAL IVPUSH PRN (13:49)
[2018-02-19] MEDS ORDERED: ONDANSETRON 4 MG/2 ML VIAL ONE (14:00)
[2018-02-19] MEDS ORDERED: LACTATED RINGERS SOLUTION 1,000 ML IV SCH (14:00)
[2018-02-19] MEDS ORDERED: oxyCODONE HCL 5 MG TABLET ONE (14:13)
[2018-02-19 14:26] VITALS: TEMP 98.1
[2018-02-19] MEDS ORDERED: ACETAMINOPHEN 1000 MG/100 ML VIAL (NON FORMULARY) IVPB ONE (15:12)
[2018-02-19 16:41] VITALS: BP 111/79; PULSE 69
--- NOTE | 2018-02-20 14:59 | OP ---
DATE OF OPERATION: 02/19/2018 PREOPERATIVE DIAGNOSIS: Menometrorrhagia, endometrial polyps, adenomyosis. POSTOPERATIVE DIAGNOSIS: Menometrorrhagia, endometrial polyps, adenomyosis. SURGERY: Hysteroscopy, excision of polyps, dilatation and curettage. SURGEON: Derek Jones MD LACROSSE COACH: None. ANESTHESIOLOGIST: Demetrice Sparks MD ANESTHESIA: General. COMPLICATIONS: None. PATHOLOGY: Endometrial polyps and endometrial curettings. ESTIMATED BLOOD LOSS: 10 mL. INTRAVENOUS FLUIDS: 600 mL. FINDINGS: Examination under anesthesia revealed a small anteverted uterus with no pelvic or adnexal masses. Hysteroscopy revealed a slightly enlarged uterine cavity that was sounded to 8 cm. There were 2 endometrial polyps noted within. Otherwise, a normal endometrial cavity. PROCEDURE: The patient was met preoperatively. Risks, benefits, and alternatives of surgery were discussed in details. All questions were answered. The patient was then brought to the OR with IV running. She was placed on the surgical table in the supine position. General anesthesia was achieved without difficulty. The patient was then placed in a dorsal lithotomy position using adjustable Armand stirrups. She was examined under anesthesia with the findings as described above. A time-out procedure was conducted as per standard protocol. The patient was then prepped and draped in the usual sterile fashion. A weighted speculum was introduced inside the vagina with good visualization of the cervix. The anterior cervical lip was grasped with a single-tooth tenaculum. The cervical os was dilated to accommodate a size 15 Mckinley dilator. A hysteroscope was then advanced gently through the cervical os. The endometrial cavity was noted to contain 2 endometrial polyps. The endometrium also appeared disorganized and polypoid. There were no other endometrial lesions. A hysteroscopic resection of endometrial polyps was then performed without complications. Excellent results were noted after the polyps were excised and normal uterine cavity was visualized. A gentle endometrial curettage was then performed. All of the tissue was sent to Pathology for evaluation. The hysteroscopy was then removed. Excellent hemostasis was noted. Sponge, lap, and needle counts were correct. The patient was returned to supine position. She was transferred to recovery room awake and in stable condition. Major [id number]
--- NOTE | 2018-02-23 17:00 | PATH ---
Surgical Pathology Report Patient Name: XIANG HILL [facility]. Rec. #: [id number] /Age/Gender: 1985 (Age: 32) / F Account: [id number] Location: [facility] SURGICAL Taken: 02/19/2018 Received: 02/22/2018 Reported: 02/23/2018 Physicians: Derek Jones M.D. Specimen(s) Received A: POLYP AND UTERINE CURETTINGS B: ENDOMETRIAL CURETTINGS Clinical History Polyp of corpus uteri Final Diagnosis A. POLYPS AND UTERINE CONTENTS, DILATION AND CURETTAGE: POLYPOID FRAGMENTS OF SECRETORY ENDOMETRIUM AND BUNDLES OF SMOOTH MUSCLE CONSISTENT WITH LEIOMYOMA. B. ENDOMETRIAL CURETTINGS, DILATION AND CURETTAGE: FRAGMENTS OF SECRETORY ENDOMETRIUM AND BUNDLES OF SMOOTH MUSCLE CONSISTENT WITH LEIOMYOMA. Electronically Signed Jana Peerra M.D. Gross Description A. Received in formalin labeled "polyps and uterine contents," is a 4.0 x 2.5 x 0.3 cm aggregate of church soft tissue fragments. The specimen is submitted in toto in 2 cassettes. B. Received in formalin labeled "endometrial curettings," is a 2.0 x 2.0 x 0.2 cm aggregate of church-brown soft tissue fragments. The formalin is filtered and the specimen is entirely submitted in one cassette. 02/22/2018 [facility]02/22/2018
== END 2018-02-19 16:42 | disposition home or self-care (01) ==
LOC: JASU-SURG 05:24
PROVIDERS: ATTEND Obstetrics & Gynecology
PROC: 0UB98ZX Excision of Uterus, Via Natural or Artificial Opening Endoscopic, Diagnostic (ICD-10-PCS; principal; 2018-02-19 12:00)
PROC: 0UDB8ZX Extraction of Endometrium, Via Natural or Artificial Opening Endoscopic, Diagnostic (ICD-10-PCS; 2018-02-19 12:00)
DX: D26.1 Other benign neoplasm of corpus uteri (principal); N92.1 Excessive and frequent menstruation with irregular cycle; N80.0 Endometriosis of uterus
CPT/HCPCS: 88305-TC; 94010; 94760